=== PATIENT | male | born 1950 | race Caucasian/White ===

== ENCOUNTER → 2018-07-06 | Outpatient (CLI) | payer MEDICARE ==
[2016-04-23 13:35] VITALS: BP 162/72
[~2018-07-06] MED LIST: CEPH-264 PO; GADOBUTROL 10 MMOL/10 ML VIAL IV ONE; OMEP20CA9 PO; PRAV10TA2 PO
--- NOTE | 2018-07-06 12:33 | KCIC ---
MRI of the Brain without and with Contrast 07/06/2018 Clinical History: Vision loss in the right eye. TIA. Technique: Unenhanced T1-weighted sagittal and axial and FLAIR, T2-weighted, gradient echo and diffusion-weighted axial images of the brain were obtained. Additionally thin section T1-weighted and T2-weighted axial images through the brainstem were obtained. After the intravenous administration of 9 cc of Gadavist, enhanced T1-weighted axial and coronal images of the brain were obtained. Additionally enhanced thin section axial images through the brainstem were obtained. Findings: Comparison is made to patient's CT scan of the head dated 04/23/2011. There is generalized parenchymal atrophy. Patchy, confluent and multiple small focal areas of abnormally increased signal intensity are seen within the periventricular and subcortical white matter of both cerebral hemispheres on the FLAIR and T2-weighted images consistent with areas of small vessel ischemic disease. No acute parenchymal abnormality is seen. No abnormal area of contrast enhancement is noted. No extra-axial fluid collection is seen. There is no MRI evidence of acute ischemia/infarction. The orbits are within normal limits. Mild to moderate mucosal thickening is seen scattered throughout the paranasal sinuses. Mucus retention cysts are seen involving both maxillary sinuses. These measure 1 to 3 cm in size. There are small bilateral mastoid effusions. Normal flow voids are seen within the major vascular structures surrounding the brain parenchyma. Impression: No acute parenchymal abnormality is seen. Electronically signed by: Mau Melvin MD (07/06/2018 12:29 PM) [id number]
--- NOTE | 2018-07-06 12:40 | KCIC ---
MRA of the brain without contrast 07/06/2018 Clinical History: TIA. Vision loss in right eye. Technique: Using 3-D time of flight techniques, a MRA of the major arterial structures surrounding the [place] was performed. Findings: Comparison is made to patient's MRI of the brain performed concurrently with this examination. MRA images of the anterior and posterior circulations are within normal limits. No area of stenosis or occlusion is seen. No intracranial aneurysm is seen. Impression: Negative study. Electronically signed by: Mau Melvin MD (07/06/2018 12:36 PM) [facility]
== END | disposition home or self-care (01) ==
LOC: KCIC MRI 08:28
PROVIDERS: ATTEND Internal Medicine
DX: G45.9 Transient cerebral ischemic attack, unspecified (principal); Z79.01 Long term (current) use of anticoagulants; Z96.649 Presence of unspecified artificial hip joint
CPT/HCPCS: 70544; 70553; A9585

== ENCOUNTER → 2019-09-17 | Day surgery (SDC) | payer MEDICARE ==
[~2019-09-17] MED LIST changes: -GADOBUTROL 10 MMOL/10 ML VIAL IV ONE; +IV RINGERS,LACTATED 1000ML 1,000 ML IV SCH; +LIDOCAINE 2% PF 5 ML VIAL. ONE; +OMEP20CA16 PO; -OMEP20CA9 PO; +PROPOFOL 40 ML IV ONE
[2019-09-17 09:00] VITALS: BP 98/56
--- NOTE | 2019-09-17 12:37 | CONS ---
DATE OF CONSULTATION: 09/17/2019 REFERRING PHYSICIAN: Dr. Kadeem Josue. REASON FOR CONSULTATION: Peres's and history of colonic polyps. HISTORY OF PRESENT ILLNESS: A 69-year-old male whose past medical history is significant for Peres's and hyperlipidemia, history of colonic polyps, is seen for interval upper endoscopy and colonoscopy. Bowel habits have been regular without diarrhea or constipation. Weight and appetite are stable. He has had adenomatous polyps in 2008. He controls his reflux with the omeprazole 20 mg daily. Denies any dysphagia, odynophagia otherwise is without additional complaints. PAST MEDICAL HISTORY: Peres's and hyperlipidemia, history of colonic polyps. ALLERGIES: None. MEDICATIONS: Include omeprazole and pravastatin. FAMILY AND SOCIAL HISTORY: Significant for hypertension with his mother, CVA with both parents. REVIEW OF SYSTEMS: As per records. PAST SURGICAL HISTORY: Significant for back surgery, knee surgery and tonsillectomy. PHYSICAL EXAMINATION: GENERAL: Reveals a well-nourished, well-developed male who is alert, cooperative, in no acute distress. VITAL SIGNS: Temperature 97, pulse 78, respirations 20. HEENT: Normocephalic, atraumatic head. Pupils and extraocular muscles are not tested. Sclerae anicteric. NECK: Supple. LUNGS: Clear. CARDIOVASCULAR: Reveals an S1, S2 without S3, S4 or appreciable murmur. ABDOMEN: Reveals a soft abdomen, normal bowel sounds, without appreciable hepatosplenomegaly. EXTREMITIES: Reveals no cyanosis, clubbing, or edema. IMPRESSION: 1. Peres's surveillance exam is recommended on acid suppressive therapy. Risks and benefits have been discussed and the patient is willing to proceed. 2. Colonic polyps. Surveillance exam is recommended. Risks and benefits discussed. The patient is willing to proceed. SILVANO LINDSEY MD DR: NIKO/oly JOB#: [id number] / [id number] KADEEM Laguna MD
--- NOTE | 2019-09-20 15:07 | PATHOLOGY ---
[facility] Accession Number: [id number] . 01 Material submitted: . PART A: esophagus - ESOPHAGEAL BX PART B: colon - TRANSVERSE COLON POLYP. Modifiers: transverse . 01 Clinical history: . Peres's, history of polyps A: R/O Peres's/dysplasia . 02 Diagnosis: A. Esophageal biopsies: - Segments of hyperplastic squamous esophageal mucosa identified. . B. Colon biopsies, transverse colon polyp: - Tubular adenoma. (JPM:[facility] 09/20/2019) [facility] 09/20/2019 0919 Local . 02 Comment: Sections of the esophageal biopsy reveal segments of hyperplastic squamous esophageal mucosa. One of the segments has attached submucosal glands showing mild chronic inflammation. The findings are consistent with reflux esophagitis. There is no evidence of Peres's change, dysplasia, or malignancy. . Sections of the transverse colon biopsy reveal a tubular adenoma showing no high-grade dysplasia or evidence of malignancy. (JPM:[facility] 09/20/2019) . 02 Electronically signed: . Goyo Law MD, Pathologist NPI- [id number] . 01 Gross description: . A. The specimen is received in formalin, labeled "Parker Whipple, esophageal biopsy, R/O Peres's/dysplasia". Received are four segments of pale giron soft tissue ranging in size from 0.3 to 0.5 cm in maximum dimensions. The specimen is submitted entirely in cassette A1. . B. The specimen is received in formalin, labeled "Parker Whipple, transverse colon polyp". Received are six segments of pale giron soft tissue ranging in size from 0.3 to 1.1 cm in maximum dimensions. The specimen is submitted entirely in cassette B1. (CAA; 09/17/2019) [facility]AC 09/17/2019 1502 Local . 02 Pathologist provided ICD-10: D12.3 . 02 CPT . 372806, [id number] Specimen Comment: A courtesy copy of this report has been sent to [phone] Specimen Comment: Report sent to Performed at: [address], [place] [id number] MD Ludwin Newman MD Phone: [phone] Performed at: 02 [facility] [address] [place] [id number] MD Goyo Law MD Phone: [phone]
== END | disposition home or self-care (01) ==
LOC: ENDOS 07:26
PROVIDERS: ATTEND Internal Medicine Gastroenterology
DX: Z12.11 Encounter for screening for malignant neoplasm of colon (principal); D12.3 Benign neoplasm of transverse colon; K64.0 First degree hemorrhoids; K57.30 Diverticulosis of large intestine without perforation or abscess without bleeding; K63.89 Other specified diseases of intestine; K31.89 Other diseases of stomach and duodenum; K22.70 Barrett's esophagus without dysplasia; E78.5 Hyperlipidemia, unspecified; Z79.899 Other long term (current) drug therapy; Z86.010 Personal history of colon polyps; Z82.49 Family history of ischemic heart disease and other diseases of the circulatory system; Z82.3 Family history of stroke; Z98.890 Other specified postprocedural states
CPT/HCPCS: 43239; 45385; 88305; J2001; J2704